=== PATIENT | female | born 1955 | race Asian ===

== ENCOUNTER 2016-07-03 07:43 | Outpatient (CLI) | payer OTHER | END 2016-07-03 07:44 | disposition home or self-care (01) | DX: E11.9 Type 2 diabetes mellitus without complications (principal); E78.5 Hyperlipidemia, unspecified ==

== ENCOUNTER 2017-04-04 08:00 | Outpatient (CLI) | payer OTHER ==
[2017-04-04 13:04] LABS: CHOLESTEROL 168 mg/dL; HDL CHOLESTEROL 42 mg/dL; LDL CHOLESTEROL,CALCULATED 75 mg/dL; LDL/HDL RATIO 1.8 (<4.4); VLDL CHOLESTEROL 51 mg/dL
[2017-04-04 13:05] LABS: THYROID STIMULATING HORMONE 0.19 uIU/mL (0.34-5.60)
[2017-04-04 13:23] LABS: HB2 TOTAL 14.8 g/dL; HEMOGLOBIN A1C 1.24 g/dL; HEMOGLOBIN A1C % 9.8 % (4.6-6.2)
[2017-04-04 13:40] LABS: FREE T4 (FREE THYROXINE) 1.15 ng/dL (0.58-1.64)
== END 2017-04-04 08:01 | disposition home or self-care (01) ==
LOC: LAB.WCP 08:00
PROVIDERS: ATTEND Family Medicine
DX: E78.5 Hyperlipidemia, unspecified (principal); E11.9 Type 2 diabetes mellitus without complications; E03.9 Hypothyroidism, unspecified
CPT/HCPCS: 36415; 80061; 83036; 83721; 84439; 84443

== ENCOUNTER 2017-11-16 07:45 | Outpatient (CLI) | payer OTHER ==
[2017-11-16 12:23] LABS: BASOPHILS % (AUTO) 0.6 %; EOSINOPHILS # (AUTO) 0.3 10^3/uL (0.0-0.7); EOSINOPHILS % (AUTO) 3.1 %; LYMPHOCYTES # (AUTO) 1.8 10^3/uL (1.5-3.5); LYMPHOCYTES % (AUTO) 22.4 %; MEAN CORPUSCULAR HEMOGLOBIN 30.3 pg (27.0-31.0); MEAN CORPUSCULAR HGB CONC 33.9 g/dL (32.0-36.0); MEAN CORPUSCULAR VOLUME 89.1 fL (81.0-99.0); MEAN PLATELET VOLUME 10.4 fL (7.9-10.8); MONOCYTES # (AUTO) 0.4 10^3/uL (0.0-1.0); MONOCYTES % (AUTO) 5.2 %; NEUTROPHILS # (AUTO) 5.7 10^3/uL (1.5-6.6); NEUTROPHILS % (AUTO) 68.7 %; PLT - PLATELET COUNT 170 10^3/uL (130-450); RED BLOOD COUNT 4.62 10^6/uL (4.20-5.40); RED CELL DISTRIBUTION WIDTH 12.6 % (12.0-15.0); WHITE BLOOD COUNT 8.2 x10^3/uL (4.8-10.8)
[2017-11-16 12:26] LABS: ALBUMIN 3.9 g/dL (3.2-5.5); ALBUMIN/GLOBULIN RATIO 1.4 (1.0-2.2); ALKALINE PHOSPHATASE 65 IU/L (42-121); ALT ALANINE AMINOTRANSFERASE 27 IU/L (10-60); AST ASPARTATE AMINOTRANSFERASE 22 IU/L (10-42); BILIRUBIN,TOTAL 0.7 mg/dL (0.2-1.0); BUN - BLOOD UREA NITROGEN 13 mg/dL (6-20); CALCIUM 8.8 mg/dL (8.5-10.3); CARBON DIOXIDE - CO2 22 mmol/L (21-32); CHLORIDE 105 mmol/L (101-111); CHOL/HDL RATIO 3.6 (<4.4); CHOLESTEROL 135 mg/dL; CREATININE 0.5 mg/dL (0.4-1.0); GFR - MDRD 126 (>89); GLUCOSE 203 mg/dL (70-100); HDL CHOLESTEROL 38 mg/dL; LDL CHOLESTEROL,CALCULATED 51 mg/dL; LDL/HDL RATIO 1.3 (<4.4); SODIUM 136 mmol/L (135-145); TOTAL PROTEIN 6.7 g/dL (6.7-8.2); VLDL CHOLESTEROL 46 mg/dL
[2017-11-16 12:45] LABS: HB2 TOTAL 14.5 g/dL; HEMOGLOBIN A1C 1.14 g/dL; HEMOGLOBIN A1C % 9.3 % (4.6-6.2)
== END 2017-11-16 07:46 | disposition home or self-care (01) ==
LOC: LAB.WCP 07:45
PROVIDERS: ATTEND Family Medicine
DX: E78.5 Hyperlipidemia, unspecified (principal); E11.9 Type 2 diabetes mellitus without complications; E03.9 Hypothyroidism, unspecified; I10 Essential (primary) hypertension
CPT/HCPCS: 36415; 80053; 80061; 83036; 83721; 84443; 85025

== ENCOUNTER 2018-06-07 08:00 | Outpatient (CLI) | payer OTHER ==
[2018-06-07 13:04] LABS: HB2 TOTAL 15.4 g/dL; HEMOGLOBIN A1C 1.21 g/dL; HEMOGLOBIN A1C % 9.3 % (4.6-6.2)
[2018-06-07 13:14] LABS: ALBUMIN 3.9 g/dL (3.2-5.5); ALBUMIN/GLOBULIN RATIO 1.4 (1.0-2.2); ALKALINE PHOSPHATASE 86 IU/L (42-121); ALT ALANINE AMINOTRANSFERASE 27 IU/L (10-60); AST ASPARTATE AMINOTRANSFERASE 22 IU/L (10-42); BILIRUBIN,TOTAL 0.7 mg/dL (0.2-1.0); BUN - BLOOD UREA NITROGEN 14 mg/dL (6-20); CALCIUM 9.2 mg/dL (8.5-10.3); CARBON DIOXIDE - CO2 26 mmol/L (21-32); CHLORIDE 102 mmol/L (101-111); CHOL/HDL RATIO 3.9 (<4.4); CHOLESTEROL 156 mg/dL; CREATININE 0.4 mg/dL (0.4-1.0); GFR - MDRD 163 (>89); GLUCOSE 198 mg/dL (70-100); HDL CHOLESTEROL 40 mg/dL; LDL CHOLESTEROL,CALCULATED 51 mg/dL; LDL/HDL RATIO 1.3 (<4.4); SODIUM 137 mmol/L (135-145); TOTAL PROTEIN 6.6 g/dL (6.7-8.2); VLDL CHOLESTEROL 65 mg/dL
== END 2018-06-07 23:59 | disposition home or self-care (01) ==
LOC: LAB.WCP 08:00
PROVIDERS: ATTEND Family Medicine
DX: E03.9 Hypothyroidism, unspecified (principal); I10 Essential (primary) hypertension; E78.5 Hyperlipidemia, unspecified; E11.9 Type 2 diabetes mellitus without complications
CPT/HCPCS: 36415; 80053; 80061; 83036; 83721; 84443

== ENCOUNTER 2018-11-12 07:55 | Outpatient (CLI) | payer OTHER ==
[2018-11-12 12:40] LABS: BASOPHILS % (AUTO) 0.2 %; EOSINOPHILS # (AUTO) 0.4 10^3/uL (0.0-0.7); EOSINOPHILS % (AUTO) 5.2 %; HGB - HEMOGLOBIN 13.9 g/dL (12.0-16.0); LYMPHOCYTES # (AUTO) 1.9 10^3/uL (1.5-3.5); MEAN CORPUSCULAR HEMOGLOBIN 29.1 pg (27.0-31.0); MEAN CORPUSCULAR HGB CONC 32.3 g/dL (32.0-36.0); MEAN PLATELET VOLUME 11.2 fL (7.9-10.8); MONOCYTES # (AUTO) 0.5 10^3/uL (0.0-1.0); MONOCYTES % (AUTO) 5.6 %; NEUTROPHILS # (AUTO) 5.4 10^3/uL (1.5-6.6); NEUTROPHILS % (AUTO) 65.6 %; PLT - PLATELET COUNT 236 10^3/uL (130-450); RED BLOOD COUNT 4.78 10^6/uL (4.20-5.40); RED CELL DISTRIBUTION WIDTH 12.5 % (12.0-15.0); WHITE BLOOD COUNT 8.3 x10^3/uL (4.8-10.8)
[2018-11-12 13:06] LABS: HEMOGLOBIN A1C 0.88 g/dL; HEMOGLOBIN A1C % 7.9 % (4.6-6.2)
[2018-11-12 13:18] LABS: ALBUMIN/GLOBULIN RATIO 1.3 (1.0-2.2); ALKALINE PHOSPHATASE 79 IU/L (42-121); ALT ALANINE AMINOTRANSFERASE 29 IU/L (10-60); AST ASPARTATE AMINOTRANSFERASE 22 IU/L (10-42); BILIRUBIN,TOTAL 0.5 mg/dL (0.2-1.0); BUN - BLOOD UREA NITROGEN 10 mg/dL (6-20); CALCIUM 9.1 mg/dL (8.5-10.3); CARBON DIOXIDE - CO2 26 mmol/L (21-32); CHLORIDE 106 mmol/L (101-111); CHOL/HDL RATIO 4.5 (<4.4); CHOLESTEROL 206 mg/dL; CREATININE 0.4 mg/dL (0.4-1.0); GFR - MDRD 162 (>89); GLUCOSE 159 mg/dL (70-100); HDL CHOLESTEROL 46 mg/dL; LDL CHOLESTEROL,CALCULATED 124 mg/dL; LDL/HDL RATIO 2.7 (<4.4); SODIUM 138 mmol/L (135-145); TOTAL PROTEIN 7.1 g/dL (6.7-8.2); VLDL CHOLESTEROL 36 mg/dL
== END 2018-11-12 23:59 | disposition home or self-care (01) ==
LOC: LAB.WCP 07:55
PROVIDERS: ATTEND Family Medicine
DX: I10 Essential (primary) hypertension (principal); E78.5 Hyperlipidemia, unspecified; E11.9 Type 2 diabetes mellitus without complications; E03.9 Hypothyroidism, unspecified
CPT/HCPCS: 36415; 80053; 80061; 83036; 83721; 84443; 85025

== ENCOUNTER 2020-12-17 07:50 | Outpatient (CLI) | payer OTHER ==
[2020-12-17 12:10] LABS: ALBUMIN 4.2 g/dL (3.2-5.5); ALBUMIN/GLOBULIN RATIO 1.4 (1.0-2.2); ALKALINE PHOSPHATASE 69 IU/L (42-121); ALT ALANINE AMINOTRANSFERASE 39 IU/L (10-60); AST ASPARTATE AMINOTRANSFERASE 22 IU/L (10-42); BILIRUBIN,TOTAL 0.7 mg/dL (0.2-1.0); BUN - BLOOD UREA NITROGEN 16 mg/dL (6-20); CALCIUM 9.6 mg/dL (8.5-10.3); CARBON DIOXIDE - CO2 29 mmol/L (21-32); CHLORIDE 101 mmol/L (101-111); CHOL/HDL RATIO 5.7 (<4.4); CHOLESTEROL 246 mg/dL; CREATININE 0.5 mg/dL (0.4-1.0); GFR - MDRD 125 (>89); GLUCOSE 162 mg/dL (70-100); HDL CHOLESTEROL 43 mg/dL; LDL CHOLESTEROL,CALCULATED 128 mg/dL; POTASSIUM 4.6 mmol/L (3.5-5.0); SODIUM 140 mmol/L (135-145); TOTAL PROTEIN 7.2 g/dL (6.7-8.2); TRIGLYCERIDES 376 mg/dL; VLDL CHOLESTEROL 75 mg/dL
[2020-12-17 12:28] LABS: ESTIMATED AVERAGE GLUCOSE 192 mg/dL (70-100); HEMOGLOBIN A1c% 8.3 % (4.27-6.07)
== END 2020-12-17 23:59 | disposition home or self-care (01) ==
LOC: LAB.WCP 07:50
PROVIDERS: ATTEND Family Medicine
DX: E11.9 Type 2 diabetes mellitus without complications (principal)
CPT/HCPCS: 36415; 80053; 80061; 83036; 83721

== ENCOUNTER 2023-11-26 06:03 | Emergency (ER) | payer MEDICARE, OTHER ==
[2023-11-26 07:06] LABS: BASOPHILS # (AUTO) 0.1 10^3/uL (0.0-0.1); BASOPHILS % (AUTO) 0.9 %; EOSINOPHILS # (AUTO) 0.7 10^3/uL (0.0-0.7); EOSINOPHILS % (AUTO) 6.9 %; HCT - HEMATOCRIT 44.8 % (37.0-47.0); HGB - HEMOGLOBIN 14.8 g/dL (12.0-16.0); LYMPHOCYTES # (AUTO) 2.2 10^3/uL (1.5-3.5); LYMPHOCYTES % (AUTO) 22.9 %; MEAN CORPUSCULAR HEMOGLOBIN 28.6 pg (27.0-31.0); MEAN CORPUSCULAR VOLUME 86.5 fL (81.0-99.0); MEAN PLATELET VOLUME 10.1 fL (7.9-10.8); MONOCYTES # (AUTO) 0.5 10^3/uL (0.0-1.0); MONOCYTES % (AUTO) 5.6 %; NEUTROPHILS % (AUTO) 62.5 %; PLT - PLATELET COUNT 287 10^3/uL (130-450); RED BLOOD COUNT 5.18 10^6/uL (4.20-5.40); RED CELL DISTRIBUTION WIDTH 12.8 % (12.0-15.0); WHITE BLOOD COUNT 9.6 x10^3/uL (4.8-10.8)
[2023-11-26 07:07] LABS: ALBUMIN 4.4 g/dL (3.2-5.5); ALBUMIN/GLOBULIN RATIO 1.3 (1.0-2.2); BILIRUBIN,TOTAL 0.4 mg/dL (0.2-1.0); CALCIUM 9.4 mg/dL (8.5-10.3); CREATININE 0.5 mg/dL (0.6-1.3); POTASSIUM 3.8 mmol/L (3.5-4.5); TOTAL PROTEIN 7.9 g/dL (6.4-8.9)
--- NOTE | 2023-11-26 07:17 | ED Physician Documentation ---
PD HPI CHEST PAIN - Stated complaint Stated Complaint: SOA - Chief complaint Chief Complaint: Resp - History obtained from History obtained from: Patient - Additional information Additional information: 68-year-old woman with history of type 2 diabetes not on insulin and blood pressure, no history of heart problems but did wear a heart monitor recently that was per her negative. She has been short of breath with some coughing for some time with dyspnea on exertion and overnight about 3 AM she was awoken by chest pain which she describes as an emptiness in her chest and shortness of breath. She denies pedal edema. 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 - Present Medications Home Medications: Ambulatory Orders Medication Instructions Recorded Confirmed Atorvastatin [Lipitor] 20 mg PO DAILY 09/25/22 09/25/22 Glipizide [Glipizide Xl] 10 mg PO DAILY 09/25/22 09/25/22 Levothyroxine Sodium [Synthroid] 112 mcg PO DAILY 09/25/22 09/25/22 Metformin HCl 1,000 mg PO BID 09/25/22 09/25/22 Multivitamin 1 each PO DAILY 09/25/22 09/25/22 lisinopriL [Zestril] 5 mg PO DAILY 09/25/22 09/25/22 Furosemide [Lasix] 20 mg PO DAILY #7 tablet 11/26/23 Potassium Chloride 10 meq PO DAILY #7 tab 11/26/23 - Allergies Allergies/Adverse Reactions: Allergies Allergy/AdvReac Type Severity Reaction Status Date / Time aspirin Allergy Unknown Unknown Verified 11/26/23 06:15 - Social History Does the pt smoke?: No Smoking Status: Never smoker Does the pt drink ETOH?: No Does the pt have substance abuse?: No - Immunizations Immunizations are current?: Yes - POLST Patient has POLST: No PD ED PE NORMAL - Vitals Vital signs reviewed: Yes - General General: Alert and oriented X 3, No acute distress - HEENT HEENT: PERRL, EOMI - Neck Neck: Supple, no meningeal sign, No bony TTP - Cardiac Cardiac: Other (Borderline resting tachycardia, regular without murmur) - Respiratory Respiratory: Other (No respiratory distress, severely diminished at both bases.) - Abdomen Abdomen: Non tender - Extremities Extremities: No edema, No calf tenderness / cord - Neuro Neuro: Alert and oriented X 3 Results - Vitals Vitals: Vital Signs - 24 hr 11/26/23 11/26/23 11/26/23 06:16 06:46 08:16 Temperature 36.6 C Heart Rate 106 H 99 93 Respiratory 24 18 24 Rate Blood Pressure 114/78 155/91 H 117/86 H O2 Saturation 97 96 95 11/26/23 11/26/23 10:00 11:59 Temperature 36.6 C Heart Rate 103 H 96 Respiratory 21 22 Rate Blood Pressure 135/88 H 126/74 O2 Saturation 93 94 Oxygen O2 Source Room air - EKG (time done) 0622 EKG releavant findings:: EKG personally interpreted by author of this note. Relevant findings are: Rate: Rate (enter#) (100) Rhythm: Sinus tachycardia [place]: Normal Intervals: Normal OR QRS: Normal Ischemia: Q waves (small III/ant) Computer interpretation: Agree with computer - Labs Labs: Microbiology 11/26/23 10:55 Body Fluid Culture - Preliminary Pleural Fluid Laboratory Tests 11/26/23 11/26/23 11/26/23 06:44 06:44 06:44 WBC 9.6 RBC 5.18 Hgb 14.8 Hct 44.8 MCV 86.5 MCH 28.6 MCHC 33.0 RDW 12.8 Plt Count 287 MPV 10.1 Neut # (Auto) 6.0 Lymph # (Auto) 2.2 [place] # (Auto) 0.5 Eos # (Auto) 0.7 Baso # (Auto) 0.1 Absolute Nucleated RBC 0.00 Nucleated RBC % 0.0 Sodium 139 Potassium 3.8 Chloride 103 Carbon Dioxide 27 Anion Gap 9.0 BUN 8 Creatinine 0.5 L Estimated GFR (MDRD) 123 Glucose 151 H Calcium 9.4 Total Bilirubin 0.4 AST 17 ALT 28 Alkaline Phosphatase 74 Troponin I High Sens 3.2 B-Natriuretic Peptide 33 Total Protein 7.9 Albumin 4.4 Globulin 3.5 Albumin/Globulin Ratio 1.3 Lipase 24 Fluid Source Fluid Color Fluid Clarity Fluid WBC Fluid RBC Fluid Neutrophils % Fluid Lymphocytes % Fluid Monocytes % Fluid Macrophages % Fld Mesothelial Cell % 11/26/23 10:55 WBC RBC Hgb Hct MCV MCH MCHC RDW Plt Count MPV Neut # (Auto) Lymph # (Auto) [place] # (Auto) Eos # (Auto) Baso # (Auto) Absolute Nucleated RBC Nucleated RBC % Sodium Potassium Chloride Carbon Dioxide Anion Gap BUN Creatinine Estimated GFR (MDRD) Glucose Calcium Total Bilirubin AST ALT Alkaline Phosphatase Troponin I High Sens B-Natriuretic Peptide Total Protein Albumin Globulin Albumin/Globulin Ratio Lipase Fluid Source PLEURAL Fluid Color YELLOW Fluid Clarity CLOUDY Fluid WBC 3208 Fluid RBC 97644 Fluid Neutrophils % 14 Fluid Lymphocytes % 78 Fluid Monocytes % 4 Fluid Macrophages % 4 Fld Mesothelial Cell % Not Reportable - Rads (name of study) Chest x-ray demonstrates findings of CHF with small right and small to moderate left pleural effusions and pulmonary edema. Relevant Findings:: Final report received, EMP independent interpretation of test CT of the chest demonstrating bilateral pleural effusions and nodules with interstitial prominence. With recommendation for left diagnostic thoracent Relevant Findings:: Final report received, EMP independent interpretation of test Procedures - Thoracentesis - Major Preparation: Consent obtained, Sterile prep and drape, Sitting, Local - lidocaine Technique: Left (18g needle for 20ml diagnostic), Ultrasound used Fluid: Clear, Sent for cell count, Sent for gram stain, Sent for culture, Sent for cytology Aftercare: CXR obtained PD Medical Decision Making - ED course ED course: 68-year-old woman presents with chest pain and shortness of breath. Sounds like subacute to chronic on acute this morning. Physical exam findings are worrisome for left-sided heart failure with pulmonary edema on chest x-ray with pleural effusions. She does not appear peripherally fluid overloaded. She was treated with IV Lasix. That said subsequently her lab test including CBC, CMP, troponin and BNP were all normal. The negative BNP brings into question the chest x-ray findings and plan to CT to evaluate for alternative etiologies of her illness and chest x-ray findings. The CT demonstrated both pulmonary edema likely with other nice nonspecific findings but bilateral pleural effusions with recommendation to do a diagnostic thoracentesis on the left. This was done after patient consent and 20 mL of fluid was sent for cell count and cytology. She is stable also can have an outpatient workup, and recommended they talk to their doctor. They actually a lready have a telehealth visit for later in the day and recommended follow-up for cytology review and likely echocardiography. Departure - Departure Disposition: 01 Home, Self Care Clinical Impression: Dyspnea, Pleural effusion, Pulmonary edema Condition: Good Record reviewed to determine appropriate education?: Yes Instructions: ED Dyspnea Shortness of Breath Prescriptions: Furosemide [Lasix] 20 mg PO DAILY #7 tablet Potassium Chloride 10 meq PO DAILY #7 tab Comments: Usually this is due to a heart condition, but the markers for heart failure in your blood work were negative which was surprising. As such we did a CAT scan which demonstrated the fluid in and around your lungs and the radiologist recommends you have a repeat CAT scan in 3 months to see if it is progressing or improving. In addition I am putting you on some medication to help with getting the fluid off your lungs and you should follow-up with your doctor for further evaluation and treatment, not limited to consideration for echocardiography. There is cytology pending on the fluid from your chest as well to rule out cancer and this should be done in about a week. Make sure your doctor gets informed of this as well. Return for new or worsening symptoms. Forms: PCP List Discharge Date/Time: 11/26/23 11:59
[2023-11-26 07:30] LABS: TROPONIN I HIGH SENSITIVITY 3.2 ng/L (2.3-14.8)
[2023-11-26] MEDS: FUROSEMIDE 20 MG/2 ML VIAL IVP STA (07:35)
--- NOTE | 2023-11-26 08:24 | XRAY Report ---
PROCEDURE: Chest 1V INDICATIONS: cough TECHNIQUE: One view of the chest was acquired. COMPARISON: None. FINDINGS: Surgical changes and devices: None. Lungs and pleura: Interstitial pulmonary edema. Moderate left pleural effusion. Compressive left bas ilar atelectasis. Right basilar atelectasis. Mediastinum: Mediastinal contours appear normal. Heart size is silhouetted by adjacent pulmonary pr ocess. Bones and chest wall: No suspicious bony lesions. Overlying soft tissues appear unremarkable. IMPRESSION: Findings most likely represent a congestive heart failure exacerbation. Findings include interstitial pulmonary edema and a moderate left pleural effusion and bibasilar atelectasis, left greater than ri ght. Reviewed by: Keaton Ruvalcaba MD on 11/26/2023 8:22 AM PDT Approved by: Keaton Ruvalcaba MD on 11/26/2023 8:22 AM PDT Station ID: [id number]
[2023-11-26] MEDS ORDERED: iohexoL-300 100 ML VIAL ONE (09:01)
--- NOTE | 2023-11-26 10:43 | CT Report ---
PROCEDURE: Chest W INDICATIONS: abn cxr, nl bnp CONTRAST: Omni 300 100ml TECHNIQUE: After the administration of intravenous contrast, a CT scan of the chest was performed. Images were recorded and evaluated at appropriate window settings. Reformats: axial MIP of the chest, coronal and sagittal. For radiation dose reduction, the following was used: automated exposure control, adjustme nt of mA and/or kV according to patient size. COMPARISON: Chest film dated 11/26/2023 FINDINGS: Image quality: Diagnostic. Chest wall and lower neck: No thyroid nodule which requires sonographic follow up. Right breast clips . No axillary or supraclavicular adenopathy by size. Lungs and pleura: There are bilateral moderate pleural effusions, left greater than right. The left p leural effusion has a prominent subpulmonic component. There is associated compressive bibasilar atel ectasis. On image 128 of the distal window series 12 is a 7 mm right upper lobe pulmonary nodule with a Hounsfield density of 174. On axial image 161 of series 12 is a left upper lobe pulmonary nodule m easuring 8 mm with a Hounsfield measurement of 156. In the anterior medial right upper lobe is a 4 mm pulmonary nodule on image 144. Patchy bilateral groundglass opacities. Mild interstitial prominence. . Mediastinum: Heart size is normal. No pericardial effusion. No large vessel abnormality. There is ill -defined soft tissue in the superior mediastinum surrounding the origins of the great vessels. Refere nce image 97 of series 2. No well-defined measurable abnormal mediastinal lymph node is noted. Bones: No aggressive osseous abnormality. Upper Abdomen: Mild to moderate diffuse hepatic steatosis. IMPRESSION: 1. Nonspecific findings of bilateral pleural effusions, bilateral pulmonary nodules, interstitial pro minence. Findings may potentially be related to infection, inflammation, or malignancy. Recommend diagnostic left thoracentesis, which can be performed in lateral segment guidance, and 3 mo nth follow-up CT chest with contrast Reviewed by: Keaton Ruvalcaba MD on 11/26/2023 10:41 AM PDT Approved by: Keaton Ruvalcaba MD on 11/26/2023 10:41 AM PDT Station ID: [id number]
[2023-11-26] MEDS: LIDOCAINE 1%-EPI 1:100000 20 ML MDV SUBQ STA (10:52)
--- NOTE | 2023-11-26 11:28 | XRAY Report ---
PROCEDURE: Post Thoracentesis 1V CXR INDICATIONS: Status post left thoracentesis TECHNIQUE: One view of the chest was acquired. COMPARISON: 11/26/2023 at 0644 hours, CT chest dated 11/26/2023. FINDINGS: Surgical changes and devices: Lower left neck clips. Lungs and pleura: Diffuse interstitial changes. Decrease in left pleural fluid, still moderate, with left basilar atelectasis. Mediastinum: Mediastinal contours appear normal. Heart size is normal. Bones and chest wall: No suspicious bony lesions. Overlying soft tissues appear unremarkable. IMPRESSION: No pneumothorax post left thoracentesis.. Comment: As per recommendations on the chest CT from today, recommend 3 month follow-up CT chest. Ple ase refer to a separate report from today's chest CT. Reviewed by: Keaton Ruvalcaba MD on 11/26/2023 11:27 AM PDT Approved by: Keaton Ruvalcaba MD on 11/26/2023 11:27 AM PDT Station ID: [id number]
[2023-11-26 11:32] LABS: CC,BF WBC 3208 /mm^3
[2023-11-26 11:36] LABS: BF CLARITY CLOUDY; BF COLOR YELLOW; BF SOURCE PLEURAL; CC,BF RBC 10000 /mm^3
[2023-11-26 11:55] LABS: LYMPHOCYTES %,BODY FLUID 78 %; MONOCYTES %,BODY FLUID 4 %; NEUTROPHILS %, BF 14 %
[2023-11-26 11:56] LABS: MACROPHAGES %,BODY FLUID 4 %
[2023-11-26 12:16] VITALS: BP 126/74; O2SAT 94
[2023-11-26] MEDS: iohexoL-300 100 ML VIAL IVP ONE (13:12)
== END 2023-11-26 11:59 | disposition home or self-care (01) ==
LOC: ED 06:03
DX: J90 Pleural effusion, not elsewhere classified (principal); J81.1 Chronic pulmonary edema
CPT/HCPCS: 32554; 36415; 71045; 71260; 80053; 83690; 83880; 84484; 85025; 87070; 87205; 89051; 93005; 96374; 99284; Q9967